=== PATIENT | male | born 1995 ===

== ENCOUNTER 2018-11-23 18:37 | Emergency (ER) | payer OTHER ==
[2018-11-23 19:21] VITALS: BP 128/85
[2018-11-23] MEDS ORDERED: Acetaminophen TAB* 325 MG PO ONE (20:17)
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
--- NOTE | 2018-11-24 07:40 | UC ---
- Progress Note Progress Note: Final lumbar spine x-ray report reviewed:1. MILD SCOLIOSIS. 2. MILD DEGENERATIVE DISC DISEASE, WITH FACET OSTEOARTHRITIS MOST PRONOUNCED ALONG THE LOWER LUMBAR SPINE. 3. NO ACUTE OSSEOUS INJURY. IF SYMPTOMS PERSIST, RECOMMEND REPEAT IMAGING No acute injury, wet read correct. No change in plan Course/Dx - Diagnoses Provider Diagnoses: Low back strain, Contusion of lower back Discharge - Sign-Out/Discharge Documenting (check all that apply): Post-Discharge Follow Up All imaging exams completed and their final reports reviewed: Yes - Discharge Plan Condition: Stable Disposition: HOME Prescriptions: Cyclobenzaprine TAB* [Flexeril TAB*] 10 mg PO BID PRN #30 tab PRN Reason: Pain Ibuprofen TAB* [Motrin TAB* 800 MG] 800 mg PO Q8H PRN #30 tab PRN Reason: Pain Patient Education Materials: Low Back Strain (ED), Contusion in Adults (ED) Forms: *Work Release Referrals: No Primary Care Phys,NOPCP [Primary Care Provider] - Additional Instructions: X-RAYS TODAY UNREMARKABLE ON MY INITIAL INTERPRETATION. WE WILL CALL YOU TOMORROW IF THE RADIOLOGY READ DIFFERS. YOUR SYMPTOMS SHOULD IMPROVE SIGNIFICANTLY OVER THE NEXT 1-2 WEEKS. IF YOU DO NOT IMPROVE EXPECTED FOLLOW- UP WITH YOUR PCP. YOU MAY BENEFIT FROM REPEAT/MORE ADVANCED IMAGING AT THAT TIME. BE SURE TO GO THROUGH SLOW RANGE OF MOTION AND STRETCHING EXERCISES DAILY YOU ARE ABLE TO PREVENT STIFFENING UP AND MAKING THE DISCOMFORT WORSE. TAKE THE MUSCLE RELAXER BEFORE BED. IBUPROFEN EVERY 8 HRS. OTC TYLENOL MAX DOSE: 1000MG (2 EXTRA STRENGTH TABS) EVERY 8 HRS OR 650MG (2 REGULAR TABS) EVERY 6 HRS CALL THE NUMBER BELOW FOR ASSISTANCE IN ESTABLISHING WITH A PCP An additional resource available to assist in finding the appropriate physician for your health care needs is the [facility] ([facility]). You may contact them by calling [phone]. - Billing Disposition and Condition Condition: STABLE Disposition: Home
== END 2018-11-23 21:18 | disposition home or self-care (01) ==
LOC: UCEAST 18:37
DX: S39.012A Strain of muscle, fascia and tendon of lower back, initial encounter (principal); S30.0XXA Contusion of lower back and pelvis, initial encounter; X58.XXXA Exposure to other specified factors, initial encounter; Y92.9 Unspecified place or not applicable; Y99.0 Civilian activity done for income or pay
CPT/HCPCS: 72100; 99202; A9270-GY; G0463